=== PATIENT | male | born 1955 | race Caucasian/White ===

== ENCOUNTER → 2019-08-30 08:10 | Outpatient (CLI) | payer BC ==
[2019-06-18 16:08] VITALS: BMI 28.0
[~2019-08-30 08:10] MED LIST: COUMADIN5 MG PO; LISINOPRIL20 MG PO
--- NOTE | 2019-09-03 08:35 | EC ---
PATIENT:DAVE DUVAL DATE OF SERVICE: 08/30/19 SEX: M MEDICAL RECORD: [id number] DATE OF : 53 LOCATION:[facility] AGE OF PATIENT: 63 ADMISSION DATE: 08/30/19 REFERRING PHYSICIAN: INTERPRETING PHYSICIAN: BENSON QURESHI MD ECHOCARDIOGRAM REPORT ECHO CHARGES 4 ECHO COMPLETE Date: 08/30/19 CLINICAL DIAGNOSIS: PURCELL/AVR/ABNORMAL EKG H/O HTN ECHOCARDIOGRAPHIC MEASUREMENTS (adult normal given) AC root (d.<3.7cm) 4.2 cm LV Septum d (<1.2 cm> 1.4 cm Valve Excursion 0.8 cm LV Septum (systole) 2.5 cm Left Atria (s.<4.0cm> 3.6 cm LVPW d(<1.2cm) 1.3 cm RV (d.<2.3cm) 2.8 cm LVPW (sytole) 1.9 cm LV diastole(<5.6CM) 6.1 cm MV E-F(>70mm/sec) cm LV systole 3.1 cm LVOT Diameter 2.4 cm MV exc.(>10mm) cm Est.ejection fraction (50-75%) % DOPPLER: LVIT cm/sec A 50.0 cm/sec E 89.0 cm/sec LA cm/sec RVSP 30.0 mmHg LVOT 166 cm/sec AOP1/2T m/s Asc. Ao 232 cm/sec RVOT 48.0 cm/sec RA cm/sec PA 97.0 cm/sec AV Gradient Peak 22.0 mmHg AV Mean 12.1 mmHg AV Area 3.2 cm MV Gradient Peak 3.7 mmHg MV Mean 1.3 mmHg MV Area cm COMMENTS: OP - HC Country Manager: 1 DUDLEY XAVIER Public Health Internship: 3 Dr. Velasquez TAPE# PACS Pericardial Effusion N DATE OF SERVICE: Adequate 2D, color flow imaging, spectral Doppler, and M-Mode. LVH is present. LV internal dimension is normal. Wall motion is normal. EF is greater than or equal to 55%. Prosthetic mechanical aortic valve is noted with acceptable Doppler velocity, no more than mild AI. Left atrium is normal. Mitral valve shows no prolapse. Trace MR. Right-sided chambers are grossly normal. Trace TR. ECHOCARDIOGRAM REPORT [id number] DAVE DUVAL TRANSINT:[id number] Voice Confirmation ID: [id number] DOCUMENT ID: [id number] BENSON QURESHI MD at 0835 CC: [id number] DICTATION DATE: 09/02/19841 HEEL EDGE INKER MACHINE: 09/02/19 1717 DEP CLI 08/30/19 [place] [id number] [place] [id number]
== END | disposition home or self-care (01) ==
LOC: D.HCCECHO 08:10
PROVIDERS: ATTEND Internal Medicine Interventional Cardiology
DX: Z95.2 Presence of prosthetic heart valve (principal)

== ENCOUNTER → 2020-09-04 07:47 | Outpatient (CLI) | payer BC ==
[2019-06-18 16:08] VITALS: BMI 28.0
--- NOTE | 2020-09-08 14:10 | EC ---
PATIENT:DAVE DUVAL DATE OF SERVICE: 09/04/20 SEX: M MEDICAL RECORD: [id number] DATE OF : [birth year] LOCATION:[facility] AGE OF PATIENT: 64 ADMISSION DATE: 09/04/20 REFERRING PHYSICIAN: INTERPRETING PHYSICIAN: BENSON QURESHI MD ECHOCARDIOGRAM REPORT ECHO CHARGES 4 ECHO COMPLETE Date: 09/04/20 CLINICAL DIAGNOSIS: CAD/AORTIC VALVE REPLACEMENT ECHOCARDIOGRAPHIC MEASUREMENTS (adult normal given) AC root (d.<3.7cm) 4.1 cm LV Septum d (<1.2 cm> 1.2 cm Valve Excursion 1.8 cm LV Septum (systole) 1.9 cm Left Atria (s.<4.0cm> 3.3 cm LVPW d(<1.2cm) 1.3 cm RV (d.<2.3cm) 2.9 cm LVPW (sytole) 1.8 cm LV diastole(<5.6CM) 5.2 cm MV E-F(>70mm/sec) cm LV systole 3.2 cm LVOT Diameter 2.0 cm MV exc.(>10mm) 1.9 cm Est.ejection fraction (50-75%) % DOPPLER: LVIT cm/sec A 57.0 cm/sec E 70.0 cm/sec LA cm/sec RVSP 32 mmHg LVOT 142 cm/sec AOP1/2T 655 m/s Asc. Ao 232 cm/sec RVOT 62 cm/sec RA cm/sec PA 148 cm/sec AV Gradient Peak 21.47mmHg AV Mean 11.75mmHg AV Area 1.8 cm MV Gradient Peak 2.21 mmHg MV Mean 0.76 mmHg MV Area cm COMMENTS: Sales Planning Manager: 2 DAMIEN ESCOBAR Donor Recruiter: 3 Dr. Velasquez TAPE# PACS Pericardial Effusion N DATE OF SERVICE: Adequate 2D, color flow imaging, spectral Doppler, and M-Mode. FINDINGS: Mild LVH. LV internal dimension is normal. Wall motion is normal. EF is greater than or equal to 55%. Mechanical prosthetic aortic valve was noted with good Doppler velocity and no more than mild AI. Left atrium is normal. Mitral valve shows no prolapse. Trivial MR. Right side is grossly normal. Trivial TR. ECHOCARDIOGRAM REPORT [id number] DAVE DUVAL TRANSINT:[id number] Voice Confirmation ID: [id number] DOCUMENT ID: [id number] BENSON QURESHI MD at 1410 CC: [id number] DICTATION DATE: 09/07/20 1138 BIAS MACHINE OPERATOR: 09/07/20 1712 DEP CLI 09/04/20 [place] [id number] [place] [id number]
== END | disposition home or self-care (01) ==
LOC: D.HCCECHO 07:47
PROVIDERS: ATTEND Internal Medicine Interventional Cardiology
DX: I25.10 Atherosclerotic heart disease of native coronary artery without angina pectoris (principal)